=== PATIENT | female | born 1985 | race African-American/Black ===

== ENCOUNTER 2017-02-27 11:10 | Emergency (ER) | payer OTHER ==
[2016-10-22 14:35] VITALS: BP 112/56
[~2017-02-27 11:10] MED LIST: SULF1TAB24 PO; TRAM-29 PO
[2017-02-27] MEDS ORDERED: IBUPROFEN 800 MG TABLET. PO ONE (12:00)
[2017-02-27] MEDS ORDERED: CYCLOBENZAPRINE 10 MG TABLET. ONE (12:00)
== END 2017-02-27 12:03 | disposition home or self-care (01) ==
LOC: ER 11:10
DX: S39.012A Strain of muscle, fascia and tendon of lower back, initial encounter (principal); Z88.0 Allergy status to penicillin; X50.9XXA Other and unspecified overexertion or strenuous movements or postures, initial encounter; Y93.89 Activity, other specified; Y92.89 Other specified places as the place of occurrence of the external cause; Y99.8 Other external cause status
CPT/HCPCS: 99283